=== PATIENT | female | born 1985 | race Caucasian/White ===

== ENCOUNTER 2017-01-05 23:15 | Emergency (ER) | payer MEDICARE, MEDICAID | END 2017-01-05 23:55 | disposition home or self-care (01) | LOC: ER 23:15 | DX: M72.2 Plantar fascial fibromatosis (principal) ==

== ENCOUNTER → 2017-02-23 | Outpatient (CLI) | payer MEDICARE, MEDICAID | END | disposition home or self-care (01) | LOC: LAB.O 12:59 | PROVIDERS: ATTEND Student in an Organized Health Care Education/Training Program | DX: K14.6 Glossodynia (principal) ==

== ENCOUNTER → 2017-03-06 | Outpatient (CLI) | payer MEDICARE, MEDICAID ==
--- NOTE | 2017-03-06 14:57 | MRI ---
EXAM DESCRIPTION: Cervical Spine w/wo Contrast CLINICAL HISTORY: PAIN COMPARISON: None Available. TECHNIQUE: MRI of the cervical spine is performed according to our usual protocol. FINDINGS: Straightening of the cervical spine with a tiny amount reversal of the lordosis centered at approximately the C5 level is present with multilevel modest disc desiccation with very little loss of disc height is evident. No intradural or intramedullary masses are noted in the cervical cord on pre and postcontrast imaging demonstrates no evidence of abnormal enhancement or intradural or intra-axial mass. The adjacent neck soft tissues and retropharyngeal spaces are unremarkable with no abnormal fluid collections in the epidural space or marrow destructive changes. C2-3: The disc is mildly desiccated. There is no loss of height. There is no bulging. The facets are unremarkable with no significant hypertrophy. There is no stenosis or impingement. C3-4: The disc is mildly desiccated. There is no loss of height. There is no bulging. The facets are unremarkable with no significant hypertrophy. There is no stenosis or impingement. C4-5: The disc is mildly desiccated There is no loss of height. There is no bulging. The facets are unremarkable with no significant hypertrophy. There is no stenosis or impingement. C5-6: The disc is mildly desiccated with symmetric annular bulge of the disc osteophyte complex with adequate central canal. Mildly asymmetric narrowing of the right neural foramen from uncinate process hypertrophy and/or facet arthropathy. C6-7: The disc is mildly desiccated. There is no loss of height. There is no bulging. The facets are unremarkable with no significant hypertrophy. There is no stenosis or impingement. C7-T1: the disc is well hydrated. There is no loss of height. There is no bulging. The facets are unremarkable with no significant hypertrophy. There is no stenosis or impingement. Postcontrast imaging shows no abnormal areas of enhancement or tumor mass or destructive process within the bony cervical spine. IMPRESSION: 1. Multilevel disc desiccation with slight straightening of the cervical spine through C6-7 with mild symmetric annular bulge and mild right foraminal narrowing noted only at the C5-6 level. 2. No cervical spine stenosis or disc lateralizing herniation is seen and no destructive process is noted. Electronically signed by: Santosh Chavez MD 03/06/2017 2:56 PM CDT
--- NOTE | 2017-03-06 15:32 | MRI ---
Study: MRI of the Lumbar Spine. Indication: Two-month history lower back pain, bilateral leg pain and numbness Technique: Multiplanar, multi sequence MRI of the lumbar spine was obtained with and without intravenous contrast. Comparison: None. Findings: The designated L5-S1 disc space level is visualized on axial T2 image three. Vertebral body height maintained. No marrow infiltrating lesion. Conus medullaris unremarkable. L1-L2: Unremarkable. L2-L3: Unremarkable L3-L4: Unremarkable L4-L5: Mild to moderate bilateral facet arthrosis, otherwise unremarkable. L5-S1: Mild disc space height loss and disc desiccation noted with a 2.5 mm disc bulge and superimposed broad-based left lateral recess/foraminal disc protrusion measuring 4 mm AP by 24 mm transverse. Annular fissuring noted at its base. Moderate bilateral facet arthrosis. No spinal canal narrowing. Mild to moderate left and mild right neural foraminal narrowing. No pathologic enhancement. Impression: L5-S1 disc disease as above with mild to moderate left and mild right neural foraminal narrowing. No spinal canal narrowing. Electronically signed by: Bam Shell MD 03/06/2017 3:31 PM CDT
== END | disposition home or self-care (01) ==
LOC: MRI 10:09
PROVIDERS: ATTEND Psychiatry & Neurology Pain Medicine
DX: M51.37 Other intervertebral disc degeneration, lumbosacral region (principal); M50.323 Other cervical disc degeneration at C6-C7 level

== ENCOUNTER → 2017-03-13 | Outpatient (CLI) | payer MEDICARE, MEDICAID | END | disposition home or self-care (01) | LOC: LAB.O 11:05 | PROVIDERS: ATTEND General Practice | DX: I10 Essential (primary) hypertension (principal); Z13.1 Encounter for screening for diabetes mellitus ==

== ENCOUNTER 2017-05-01 15:36 | Emergency (ER) | payer MEDICARE, MEDICAID ==
[2017-05-01] MEDS ORDERED: LIDOCAINE VIS-MYLANTA 30 ML UD PO ONE (15:48)
[2017-05-01 15:55] VITALS: TEMP 98
--- NOTE | 2017-05-01 16:32 | RAD ---
EXAM DESCRIPTION: Abdomen Flat Upright CLINICAL HISTORY: 32 years Female, pain COMPARISON: None available IMPRESSION: Bowel gas pattern is nonspecific. Moderate amount of fecal material demonstrated within the ascending colon, transverse colon, descending colon and rectum. Air is seen within the colon and rectum. No evidence for pneumatosis intestinalis, portal venous gas, or free air under diaphragm. No organomegaly. No pathologic calcifications. No acute osseous abnormality. Impression: 1. No radiographic evidence for acute intra-abdominal process. 2. Moderate amount of fecal material in the colon and rectum. Electronically signed by: Jose Zamora MD 05/01/2017 4:32 PM CDT
--- NOTE | 2017-05-01 16:34 | RAD ---
EXAM DESCRIPTION: Chest,2 Views CLINICAL HISTORY: left lower chest pain COMPARISON: Chest radiograph dated September 18, 2013. TECHNIQUE: PA/lateral FINDINGS: Cardiomediastinal silhouette and pulmonary vascularity are within normal limits. Lungs are clear without focal consolidations. Bilateral costophrenic angles are sharp. No pneumothorax. Visualized osseous structures show no destructive lesions. IMPRESSION: No radiographic evidence for acute cardiopulmonary process. Electronically signed by: Jose Zamora MD 05/01/2017 4:33 PM CDT
--- NOTE | 2017-05-01 16:35 | ED.PDOC ---
History of Present Illness - General Chief Complaint: Problem Stated Complaint: left flank pain radiating to left abdomen Time Seen by Provider: 05/01/17 15:37 Source: patient Exam Limitations: no limitations - History of Present Illness Initial Comments: the patient is a 32-year-old female presenting to the emergency room secondary to left upper abdominal and lower lateral chest discomfort present for less than 24 hours. No definite fever. No nausea. She started having a mild amount of diarrhea 2 days ago. Her last episode of diarrhea was this morning. No blood. No vomiting. No syncope or near-syncope. No chest pain otherwise. No palpitations. She did recently go off of Cymbalta. Timing/Duration: 24 hours Severity: moderate Improving Factors: nothing Worsening Factors: movement Associated Symptoms: denies symptoms Allergies/Adverse Reactions: Allergies NO KNOWN ALLERGY Allergy (Verified 05/01/17 15:46) Home Medications: Ambulatory Orders Desvenlafaxine Succinate [Pristiq] 50 mg PO BEDTIME 10/03/16 Gabapentin 600 mg PO BEDTIME 10/03/16 Omeprazole 40 mg PO BEDTIME 10/03/16 Atenolol 100 mg PO 05/01/17 Famotidine 20 mg PO BID #15 tab 05/01/17 Ondansetron [Zofran Odt] 4 mg PO Q4H PRN #10 tab 05/01/17 Pravastatin Sodium 40 mg PO 05/01/17 Review of Systems - Review of Systems Constitutional: States: malaise EENTM: States: no symptoms reported Respiratory: States: no symptoms reported Cardiology: States: no symptoms reported, see HPI Gastrointestinal/Abdominal: States: see HPI Genitourinary: States: no symptoms reported Musculoskeletal: States: no symptoms reported Skin: States: no symptoms reported Neurological: States: no symptoms reported Endocrine: States: no symptoms reported All other Systems: No Change from Baseline Past Medical History (General) - Patient Medical History Hx Seizures: No Hx Stroke: No Hx Dementia: No Hx Asthma: No Hx of COPD: No Hx Cardiac Disorders: No Hx Congestive Heart Failure: No Hx Pacemaker: No Hx Hypertension: No Hx Thyroid Disease: No Hx Diabetes: No Hx Gastroesophageal Reflux: Yes Hx Renal Disease: No Hx Cancer: No Hx of HIV: No Hx Hepatitis C: No Hx MRSA: No Surgical History: Hysterectomy - Vaccination History Hx Tetanus, Diphtheria Vaccination: No Hx Influenza Vaccination: No Hx Pneumococcal Vaccination: No Immunizations Up to Date: No - Social History Hx Tobacco Use: No Hx Chewing Tobacco Use: No Hx Alcohol Use: No Hx Substance Use: No Hx Substance Use Treatment: No Hx Depression: No Feels Threatened In Home Enviroment: No Feels Threatened In a Relationship: No Hx Physical Abuse: No Hx Emotional Abuse: No Hx Suspected Abuse: No - Female History Patient is a Female of Child Bearing Age (10 -59 yrs old): No Patient : No Family Medical History - Family History Mother Family History: Unknown Physical Exam - Physical Exam General Appearance: Alert, Comfortable, No apparent distress Eye Exam: bilateral normal Ears, Nose, Throat: hearing grossly normal, normal ENT inspection, normal pharynx Neck: non-tender, full range of motion, supple Respiratory: lungs clear, normal breath sounds, no respiratory distress, no accessory muscle use, other - she does have some discomfort palpation over her lowest lateral ribs on the left. No bruising. No eczema. No crepitus. No deformity. Cardiovascular/Chest: normal peripheral pulses, regular rate, rhythm, no edema Peripheral Pulses: radial,right: 2+, radial,left: 2+, dorsalis pedis,right: 2+, dorsalis pedis,left: 2+, posterior tibialis,right: 2+, posterior tibialis,left: 2+ Gastrointestinal/Abdominal: soft, other - [id number] epigastric and left upper quadrant discomfort palpation. No definite palpable splenomegaly. No rebound or peritoneal signs. Rectal Exam: deferred Back Exam: normal inspection, no CVA tenderness, no vertebral tenderness Extremity: normal range of motion, non-tender, normal inspection, no pedal edema , normal capillary refill Neurologic: instructional services specialist II-XII nml as tested, alert, normal mood/affect, oriented x 3 Skin Exam: normal color - I do not see any rash over the area of pain. No history of shingles. Comments: Vital Signs - 24 hr 05/01/17 15:51 Temperature 98 F Pulse Rate [ 87 Left Apical] Respiratory 20 Rate Blood Pressure 143/73 [Left Arm] O2 Sat by Pulse 98 Oximetry Progress - Progress Progress: 05/01/17 16:37 the patient is a 32-year-old female presenting with left upper quadrant and left lower lateral chest discomfort. The patient has symptoms of gastroenteritis/colitis. She'll be placed on Pepcid for the next week in addition to her home medications. She does need to hold her pravastatin until she is feeling better. She needs to increase her fluid intake. Avoid large meals or hot or spicy foods. She can use Maalox as needed. ER warnings were given for any acute worsening. She will also be written for Zofran for as needed use for any nausea. She can follow up with her primary care doctor later this week. it is possible some of the symptoms may be related to Cymbalta withdrawal. She has been off of the medication long enough at this point that I 'm not recommending that she resume it at a lower dose. - Results/Orders Results/Orders: Laboratory Tests 05/01/17 05/01/17 15:48 15:58 Urine Color Yellow Urine Appearance Clear Urine pH 6.0 Ur Specific [place] <= 1.005 Urine Protein Negative Urine Glucose (UA) Negative Urine Ketones Negative Urine Blood Negative Urine Nitrite Negative Urine Bilirubin Negative Urine Urobilinogen 0.2 Ur Leukocyte Esterase Negative Urine RBC 0 Urine WBC 0-1 Ur Epithelial Cells 1-3 Urine Bacteria Rare Urine HCG, Qual Negative I see no evidence of infiltrate or pneumothorax or congestive heart failure on the chest x-ray. Abdominal x-ray shows a mild amount of stool. I see no evidence of free air. No evidence of obstruction. Departure - Departure Clinical Impression: Gastroenteritis and colitis, viral Disposition: Discharge to Home or Self Care Condition: Fair Departure Forms: ED Discharge - Pt. Copy, Patient Portal Self Enrollment Instructions: DI for Viral Gastroenteritis -- Adult Diet: bland diet Activity: increase activity as tolerated Referrals: Jakob Landin MD [Primary Care Provider] - 1-5 Days Prescriptions: Famotidine 20 mg PO BID #15 tab Ondansetron [Zofran Odt] 4 mg PO Q4H PRN #10 tab PRN Reason: Vomiting Home Medications: Ambulatory Orders Desvenlafaxine Succinate [Pristiq] 50 mg PO BEDTIME 10/03/16 Gabapentin 600 mg PO BEDTIME 10/03/16 Omeprazole 40 mg PO BEDTIME 10/03/16 Atenolol 100 mg PO 05/01/17 Famotidine 20 mg PO BID #15 tab 05/01/17 Ondansetron [Zofran Odt] 4 mg PO Q4H PRN #10 tab 05/01/17 Pravastatin Sodium 40 mg PO 05/01/17 Additional Instructions: the patient is a 32-year-old female presenting with left upper quadrant and left lower lateral chest discomfort. The patient has symptoms of gastroenteritis/colitis. She'll be placed on Pepcid for the next week in addition to her home medications. She does need to hold her pravastatin until she is feeling better. She needs to increase her fluid intake. Avoid large meals or hot or spicy foods. She can use Maalox as needed. ER warnings were given for any acute worsening. She will also be written for Zofran for as needed use for any nausea. She can follow up with her primary care doctor later this week. it is possible some of the symptoms may be related to Cymbalta withdrawal. She has been off of the medication long enough at this point that I 'm not recommending that she resume it at a lower dose.
[2017-05-01 16:56] VITALS: BP 130/71; O2SAT 99
== END 2017-05-01 16:56 | disposition home or self-care (01) ==
LOC: ER 15:36
DX: A08.4 Viral intestinal infection, unspecified (principal); K21.9 Gastro-esophageal reflux disease without esophagitis; Z79.899 Other long term (current) drug therapy

== ENCOUNTER 2017-09-14 00:14 | Emergency (ER) | payer MEDICARE, MEDICAID ==
--- NOTE | 2017-09-14 00:45 | ED.PDOC ---
History of Present Illness - General Chief Complaint: Abdominal Pain Stated Complaint: abdominal pain Time Seen by Provider: 09/14/17 00:43 Information Source: patient Exam Limitations: no limitations - History of Present Illness Initial Comments: Josefina Chang 32 y/o female stated that she had constant dull left sided abdominal pain for the last 1 1/2 weeks which had got worse the today with loose stool and felt nauseated.Able to eat regular food but no vomiting.Denies dysuria or hematuria. Also mentioned that pain aggravated by laying on left side. Abdominal Pain Onset Location: [facility] Pain Radiation: no radiation Quality: dull, steady Timing/Duration: other - 1 1/2 weeks Improving Factors: nothing Worsening Factors: other - see hpi Associated Symptoms: other - see hpi Review of Systems - Review of Systems Constitutional: States: no symptoms reported Respiratory: States: no symptoms reported Cardiology: States: no symptoms reported Gastrointestinal/Abdominal: States: see HPI Genitourinary: States: no symptoms reported Musculoskeletal: States: no symptoms reported Past Medical History (General) - Patient Medical History Hx Seizures: No Hx Stroke: No Hx Dementia: No Hx Asthma: No Hx of COPD: No Hx Cardiac Disorders: No Hx Congestive Heart Failure: No Hx Pacemaker: No Hx Hypertension: Yes Hx Thyroid Disease: No Hx Diabetes: No Hx Gastroesophageal Reflux: Yes Hx Renal Disease: No Hx Cancer: No Hx of HIV: No Hx Hepatitis C: No Hx MRSA: No Surgical History: appendectomy, Hysterectomy, other - hysterectomy, hemorrhoidectomy,CTS-right hand - Vaccination History Hx Tetanus, Diphtheria Vaccination: Yes Hx Influenza Vaccination: No Hx Pneumococcal Vaccination: No - Social History Hx Tobacco Use: Yes Cigarettes Packs Per Day: 1 Hx Chewing Tobacco Use: No Hx Alcohol Use: No Hx Substance Use: No Hx Substance Use Treatment: No Hx Depression: No Hx Physical Abuse: No Hx Emotional Abuse: No Hx Suspected Abuse: No - Activities of Daily Living Hospice Agency (if applicable):: None - Female History Patient is a Female of Child Bearing Age (10 -59 yrs old): No - Pt has had JEAN with BSO Patient : No - Triage Comment ED Triage Comment: Pt presents to ER--POV--Amb.--C/O Left Lower Abd pain x 2 weeks. Pt takes Hydrocodonr 10mg Po Q 6 Hrs at home for back pain. Takes 3 stool softners Q HS states. Pain is 9 and constant states. Shelly Ware RN. Family Medical History - Family History Mother Family History: Unknown Hx Family Hypertension: Yes Hx Family Cancer: Yes - breast-mother and sister Physical Exam - Physical Exam General Appearance: Alert, Comfortable, No apparent distress Eyes, Ears, Nose, Throat Exam: PERRL/EOMI, normal ENT inspection, pharynx normal Neck: non-tender, supple, normal inspection Respiratory: chest non-tender, lungs clear, normal breath sounds Cardiovascular/Chest: normal peripheral pulses, no murmur Peripheral Pulses: No deficit Gastrointestinal/Abdominal: normal bowel sounds, soft, no organomegaly, tenderness - left side abdomen ;no peritoneal signs Back Exam: no CVA tenderness, no vertebral tenderness Extremity: no pedal edema, no calf tenderness Neurologic: alert, normal mood/affect, oriented x 3 Progress - Progress Progress: 09/14/17 02:03 Vital Signs - 8 hr 09/14/17 09/14/17 09/14/17 00:20 01:15 01:34 Temperature 98.2 F 97.8 F 97.8 F Pulse Rate [Lt 62 65 65 radial] Respiratory 20 20 20 Rate Blood Pressure 142/85 119/78 119/78 [Left Arm] O2 Sat by Pulse 99 99 99 Oximetry - Results/Orders Results/Orders: Laboratory Tests 09/14/17 09/14/17 09/14/17 01:30 01:30 01:30 WBC 10.8 RBC 4.93 Hgb 13.9 Hct 40.4 MCV 82.0 MCH 28.3 MCHC 34.5 RDW 14.2 Plt Count 219 MPV 10.1 Absolute Neuts (auto) 5.30 Absolute Lymphs (auto) 4.30 H Absolute Monos (auto) 0.80 Absolute Eos (auto) 0.20 Absolute Basos (auto) 0.20 H Neutrophils % 49.6 Lymphocytes % 40.4 Monocytes % 7.1 Eosinophils % 1.5 Basophils % 1.4 Sodium 137 Potassium 3.8 Chloride 105 Carbon Dioxide 26 Anion Gap 9.8 L BUN 12 Creatinine 0.77 BUN/Creatinine Ratio 15.6 Random Glucose 103 Serum Osmolality 273.8 L Calcium 8.9 Total Bilirubin 0.4 AST 19 ALT 22 Alkaline Phosphatase 77 Serum Total Protein 7.0 Albumin 3.8 Globulin 3.2 Albumin/Globulin Ratio 1.2 Lipase 24 Urine Color Yellow Urine Appearance Clear Urine pH 6.0 Ur Specific [place] 1.025 Urine Protein Negative Urine Glucose (UA) Negative Urine Ketones Negative Urine Blood Negative Urine Nitrite Negative Urine Bilirubin Large Urine Urobilinogen 0.2 Ur Leukocyte Esterase Negative Urine RBC 0 Urine WBC 1-3 Ur Epithelial Cells 0-1 Urine Bacteria Rare Urine Mucus Moderate - EKG/XRAY/CT CT Ordered: Yes - abd/p-no acute abnormalities Departure - Departure Clinical Impression: Abdominal pain Qualifiers: Abdominal location: left upper quadrant Qualified Code(s): R10.12 - Left upper quadrant pain Time of Disposition: 03:02 Disposition: Discharge to Home or Self Care Departure Forms: ED Discharge - Pt. Copy, Patient Portal Self Enrollment Instructions: DI for Abdominal Pain-Adult Referrals: Jakob Landin MD [Primary Care Provider] - 1-2 Weeks Home Medications: Ambulatory Orders Desvenlafaxine Succinate [Pristiq] 50 mg PO BEDTIME 10/03/16 Gabapentin 600 mg PO BEDTIME 10/03/16 Omeprazole 40 mg PO BEDTIME 10/03/16 Atenolol 100 mg PO 05/01/17 Famotidine 20 mg PO BID #15 tab 05/01/17 Ondansetron [Zofran Odt] 4 mg PO Q4H PRN #10 tab 05/01/17 Pravastatin Sodium 40 mg PO 05/01/17 Additional Instructions: Followup with primary md Dr. Landin 09/18/2017 call for appointment May use Aleve (over the counter) 1-2 tablets am/pm as needed for pain
[2017-09-14] MEDS ORDERED: LACTATED RINGERS 1,000 ML ONE (01:23)
[2017-09-14] MEDS ORDERED: LACTATED RINGERS 1,000 ML IVS ONE (01:23)
[2017-09-14 01:35] VITALS: TEMP 97.8
[2017-09-14 02:32] VITALS: BP 113/71
--- NOTE | 2017-09-14 02:33 | CT ---
EXAM DESCRIPTION: Abdomen/Pelvis w/Contrast CLINICAL HISTORY: 32 years Female, pain COMPARISON: 12/11/2013 TECHNIQUE: Contiguous axial CT images of the abdomen and pelvis were acquired after the administration of intravenous contrast. Coronal and sagittal reformatted images are provided. This exam was performed according to our departmental dose-optimization program which includes use of Automated Exposure Control, adjustment of the mA and/or kV according to patient size and/or use of iterative reconstruction technique. FINDINGS: Chest base: Unremarkable. Liver: Unremarkable. Gallbladder: Unremarkable. Spleen: Unremarkable. Adrenals: Unremarkable. Pancreas: Unremarkable. Right Kidney: No renal stones or hydronephrosis. Left Kidney: No renal stones or hydronephrosis. Aorta and branch vessels: Mild calcific atherosclerosis of the aortoiliac vessels. Lymph nodes: No lymphadenopathy. Bowels: No obstruction. Colon: No wall thickening. Appendix: Surgically absent Peritoneum: No free air or free fluid. Pelvic organs: The uterus is absent. No large adnexal mass. Bladder: Unremarkable. Bones and soft tissues: No acute osseous or soft tissue abnormalities. IMPRESSION: No acute intra-abdominal abnormality. No renal stones or hydronephrosis. Electronically signed by: Brayan Rawls MD 09/14/2017 2:32 AM CDT
[2017-09-14] MEDS ORDERED: ORPHENADRINE CITRATE 30 MG/ML AMP IV ONE (02:58)
[2017-09-14] MEDS ORDERED: KETOROLAC TROMETHAMINE INJ 30 MG/ML VIAL IV ONE (02:58)
[2017-09-14] MEDS ORDERED: ORPHENADRINE CITRATE 30 MG/ML AMP IM ONE (03:13)
[2017-09-14] MEDS ORDERED: KETOROLAC TROMETHAMINE INJ 30 MG/ML VIAL IM ONE (03:13)
[2017-09-14 03:22] VITALS: O2SAT 97
== END 2017-09-14 03:30 | disposition home or self-care (01) ==
LOC: ER 00:14
DX: R10.12 Left upper quadrant pain (principal); I10 Essential (primary) hypertension; K21.9 Gastro-esophageal reflux disease without esophagitis; F17.210 Nicotine dependence, cigarettes, uncomplicated
CPT/HCPCS: 36415; 74177; 80053; 81001; 83690; 85025; J1885; J2360; J7120

== ENCOUNTER 2017-10-21 21:16 | Emergency (ER) | payer MEDICARE, MEDICAID ==
[2017-10-21] MEDS ORDERED: fentaNYL CITRATE INJ 50 MCG/ML AMP IM ONE (21:31)
[2017-10-21] MEDS ORDERED: PROMETHAZINE HCL INJ 25 MG/ML VIAL IM ONE (21:31)
[2017-10-21 21:32] VITALS: TEMP 98.4
--- NOTE | 2017-10-21 21:37 | ED.PDOC ---
History of Present Illness - General Chief Complaint: Headache Stated Complaint: headache Time Seen by Provider: 10/21/17 21:27 Source: patient Exam Limitations: no limitations Additional Information: C/O R SIDED CLIFFORD, INTERMITTENT AT FIRST BUT CONSTANT PAST 3 DAYS. - History of Present Illness Timing/Duration: other - 12 DAYS Severity: moderate Improving Factors: nothing, other - MULTIPLE OTC MEDICATIONS Worsening Factors: nothing Allergies/Adverse Reactions: Allergies NO KNOWN ALLERGY Allergy (Verified 05/01/17 15:46) Home Medications: Ambulatory Orders Desvenlafaxine Succinate [Pristiq] 50 mg PO BEDTIME 10/03/16 Gabapentin 600 mg PO BEDTIME 10/03/16 Omeprazole 40 mg PO BEDTIME 10/03/16 Atenolol 100 mg PO 05/01/17 Famotidine 20 mg PO BID #15 tab 05/01/17 Ondansetron [Zofran Odt] 4 mg PO Q4H PRN #10 tab 05/01/17 Pravastatin Sodium 40 mg PO 05/01/17 Cyclobenzaprine HCl [Flexeril] 10 mg PO TID PRN #15 tab 10/21/17 Indomethacin 50 mg PO TID PRN #14 cap 10/21/17 Review of Systems - Review of Systems Constitutional: Denies: chills, fever EENTM: Denies: eye pain, ear pain, nose congestion, throat pain Respiratory: Denies: cough, short of breath Cardiology: States: no symptoms reported Gastrointestinal/Abdominal: Denies: abdominal pain, nausea, vomiting Genitourinary: States: no symptoms reported Musculoskeletal: States: no symptoms reported Skin: States: no symptoms reported Neurological: Denies: numbness, paresthesia, weakness Endocrine: States: no symptoms reported Hematologic/Lymphatic: States: no symptoms reported Past Medical History (General) - Patient Medical History Hx Seizures: No Hx Stroke: No Hx Dementia: No Hx Asthma: No Hx of COPD: No Hx Cardiac Disorders: No Hx Congestive Heart Failure: No Hx Pacemaker: No Hx Hypertension: Yes Hx Thyroid Disease: No Hx Diabetes: No Hx Gastroesophageal Reflux: Yes Hx Renal Disease: No Hx Cancer: No Hx of HIV: No Hx Hepatitis C: No Hx MRSA: No Surgical History: appendectomy, Hysterectomy - Vaccination History Hx Tetanus, Diphtheria Vaccination: No Hx Influenza Vaccination: No Hx Pneumococcal Vaccination: No Immunizations Up to Date: Yes - Social History Hx Tobacco Use: Yes Hx Chewing Tobacco Use: No Hx Alcohol Use: No Hx Substance Use: No Hx Substance Use Treatment: No Hx Depression: Yes Hx Physical Abuse: No Hx Emotional Abuse: No Hx Suspected Abuse: No - Female History Patient is a Female of Child Bearing Age (10 -59 yrs old): Yes Patient : No Family Medical History - Family History Mother Family History: Unknown Hx Family Hypertension: Yes Hx Family Cancer: Yes - breast-mother and sister Physical Exam - Physical Exam General Appearance: Alert, No apparent distress, Obese Eye Exam: bilateral normal Ears, Nose, Throat: hearing grossly normal, normal ENT inspection, normal pharynx Neck: non-tender, full range of motion, supple Respiratory: lungs clear, normal breath sounds Cardiovascular/Chest: regular rate, rhythm, no murmur Gastrointestinal/Abdominal: non tender, soft, no organomegaly Back Exam: normal inspection, no CVA tenderness Extremity: normal range of motion, non-tender, normal inspection Neurologic: no motor/sensory deficits, alert, normal mood/affect, oriented x 3 Skin Exam: normal color, warm/dry Lymphatic: no adenopathy Progress - Progress Progress: 10/21/17 22:00 FEELS SOME BETTER. 10/21/17 22:25 FEELS MUCH BETTER Departure - Departure Clinical Impression: Tension headache Hypertension Qualifiers: Hypertension type: essential hypertension Qualified Code(s): I10 - Essential ( primary) hypertension Time of Disposition: 22:26 Disposition: Discharge to Home or Self Care Condition: Good Departure Forms: ED Discharge - Pt. Copy, Patient Portal Self Enrollment Instructions: DI for Headache Referrals: Jakob Landin MD [Primary Care Provider] - 1-2 Weeks Prescriptions: Cyclobenzaprine HCl [Flexeril] 10 mg PO TID PRN #15 tab PRN Reason: Pain Indomethacin 50 mg PO TID PRN #14 cap PRN Reason: Pain Home Medications: Ambulatory Orders Desvenlafaxine Succinate [Pristiq] 50 mg PO BEDTIME 10/03/16 Gabapentin 600 mg PO BEDTIME 10/03/16 Omeprazole 40 mg PO BEDTIME 10/03/16 Atenolol 100 mg PO 05/01/17 Famotidine 20 mg PO BID #15 tab 05/01/17 Ondansetron [Zofran Odt] 4 mg PO Q4H PRN #10 tab 05/01/17 Pravastatin Sodium 40 mg PO 05/01/17 Cyclobenzaprine HCl [Flexeril] 10 mg PO TID PRN #15 tab 10/21/17 Indomethacin 50 mg PO TID PRN #14 cap 10/21/17
[2017-10-21 22:35] VITALS: BP 136/80; O2SAT 96
== END 2017-10-21 22:34 | disposition home or self-care (01) ==
LOC: ER 21:16
DX: G44.209 Tension-type headache, unspecified, not intractable (principal); I10 Essential (primary) hypertension; Z87.891 Personal history of nicotine dependence; K21.9 Gastro-esophageal reflux disease without esophagitis
CPT/HCPCS: J2550; J3010

== ENCOUNTER → 2017-10-26 | Outpatient (CLI) | payer MEDICARE, MEDICAID ==
--- NOTE | 2017-10-27 04:40 | RAD ---
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 No significant arthritic changes. Alignment is anatomic. Electronically signed by: Brayan Rawls MD 10/27/2017 4:39 AM CLINICAL QUALITY ASSURANCE SPECIALIST
== END | disposition home or self-care (01) ==
LOC: RAD 10:12
PROVIDERS: ATTEND Orthopaedic Surgery
DX: M79.642 Pain in left hand (principal)

== ENCOUNTER → 2017-11-02 | Outpatient (CLI) | payer MEDICARE, MEDICAID | END | disposition home or self-care (01) | LOC: RESP 09:59 | PROVIDERS: ATTEND Orthopaedic Surgery | DX: Z01.812 Encounter for preprocedural laboratory examination (principal) ==

== ENCOUNTER 2017-11-22 06:09 | Day surgery (SDC) | payer MEDICARE, MEDICAID ==
[2017-11-22] MEDS ORDERED: ceFAZolin SODIUM 1 GM VIAL ONE (06:18)
[2017-11-22] MEDS ORDERED: LACTATED RINGERS 1,000 ML ONE (06:18)
[2017-11-22] MEDS ORDERED: SODIUM CHL 0.9% 100ML MINI-BAG 100 ML IVPB ONE (06:18)
[2017-11-22] MEDS ORDERED: PROPOFOL 200 MG/20 ML VIAL IV ONE (07:00)
[2017-11-22] MEDS ORDERED: BENZOCAINE-MENTH LOZ (CEPACOL) 1 EA LOZ MT PRN (07:03)
[2017-11-22] MEDS ORDERED: CYCLOBENZAPRINE HCL 10 MG TAB PO PRN (07:03)
[2017-11-22] MEDS ORDERED: PROMETHAZINE HCL INJ 12.5 MG in SODIUM CHLORIDE 0.9% 50ML 50 ML IVPB PRN (07:03)
[2017-11-22] MEDS ORDERED: HYDROcodone 5MG/APAP 325MG 1 EA TAB PO PRN (07:03)
[2017-11-22] MEDS ORDERED: ONDANSETRON INJ 4 MG/2 ML VIAL IV PRN (07:03)
[2017-11-22] MEDS ORDERED: traMADol HCL 50 MG TAB PO PRN (07:03)
[2017-11-22] MEDS ORDERED: MORPHINE SULFATE INJ 10 MG/ML VIAL IM PRN (07:03)
[2017-11-22] MEDS ORDERED: ZOLPIDEM TARTRATE 5 MG TAB PO PRN (07:03)
[2017-11-22] MEDS ORDERED: BISACODYL SUPPOSITORY 10 MG PR PRN (07:03)
[2017-11-22] MEDS ORDERED: SODIUM CHLORIDE 0.9% (FLUSH) 10 ML SYG IV PRN (07:03)
[2017-11-22] MEDS ORDERED: MAGNESIUM HYDROXIDE 30 ML UD PO PRN (07:03)
[2017-11-22] MEDS ORDERED: PROMETHAZINE HCL INJ 25 MG in SODIUM CHLORIDE 0.9% 50ML 50 ML IVPB PRN (07:03)
[2017-11-22] MEDS ORDERED: ACETAMINOPHEN 325 MG TAB PO PRN (07:03)
[2017-11-22] MEDS ORDERED: MORPHINE SULFATE INJ 10 MG/ML VIAL IV PRN (07:03)
[2017-11-22] MEDS ORDERED: ALUMINUM & MAGNESIUM HYDROXIDE 30 ML UD PO PRN (07:03)
[2017-11-22] MEDS ORDERED: ACETAMINOPHEN 500 MG TAB PO PRN (07:03)
[2017-11-22] MEDS ORDERED: TRANEXAMIC ACID INJ 1,000 MG in SODIUM CHLORIDE 0.9% 100ML 100 ML IVPB ONE (07:03)
[2017-11-22] MEDS ORDERED: TEMAZEPAM 15 MG CAP PO PRN (07:03)
[2017-11-22] MEDS ORDERED: DEX 5% W/NACL 0.45% 1000ML 1,000 ML IVS PRN (07:03)
[2017-11-22] MEDS ORDERED: NALOXONE HCL INJ 0.4 MG/ML VIAL IV PRN (07:03)
[2017-11-22] MEDS ORDERED: MORPHINE PCA 1 MG/ML 100ML 1 BAG in PREMIX BAG 1 BAG IVPB SCH (07:30)
[2017-11-22] MEDS ORDERED: CELECOXIB 100 MG CAP PO SCH (07:30)
[2017-11-22] MEDS ORDERED: IV SET AND CAP CHANGE INJ INJ SCH (07:30)
[2017-11-22] MEDS ORDERED: MAGNESIUM OXIDE 400 MG TAB PO SCH (09:00)
[2017-11-22] MEDS ORDERED: LIDOCAINE 1% 50 ML VIAL INJ ONE (09:53)
[2017-11-22] MEDS ORDERED: BUPIVACAINE 0.25% INJ 30 ML VIAL INJ ONE (09:53)
[2017-11-22] MEDS: VANCOMYCIN HCL INJ 1,000 MG VIAL IVPB ONE ×2 (10:28→10:33)
[2017-11-22] MEDS: ceFAZolin SODIUM 1 GM VIAL ONE ×2 (10:28→10:33)
--- NOTE | 2017-11-22 13:41 | OP ---
DATE OF PROCEDURE: 11/22/17 PREOPERATIVE DIAGNOSIS: 1. Carpal tunnel syndrome. POSTOPERATIVE DIAGNOSIS: 1. Carpal tunnel syndrome. PROCEDURE: 1. Carpal tunnel release. SURGEON: Avinash Pool MD. NURSES SUPERINTENDENT: Duran Youssef CST, SA-C. ANESTHESIA: Local with sedation. COMPLICATIONS: None. FINDINGS: Thickened transverse carpal ligament. INDICATION: Josefina has a history of bilateral carpal tunnel syndrome which has been confirmed both clinically and by EMG. Because of the carpal tunnel syndrome and failure to gain relief with conservative measures, she has requested operative intervention. After discussing the risks, benefits and alternatives to that, the patient has given informed consent for carpal tunnel release. PROCEDURE: The patient was brought to the Operating Room and placed in the supine position. Sedation was administered and local anesthetic was injected into the operative area under sterile conditions. After the injection of anesthetic, the arm was sterilely prepped and draped. A longitudinal incision was made directly overlying the transverse carpal ligament and blunt dissection was carried down to the ligament. The transverse carpal ligament was sharply transected along its length and a [place] elevator was used to ensure complete release of the ligament. Once release had been confirmed, the wound was thoroughly irrigated and the wound was closed with Nylon suture. A sterile dressing was placed and the patient was taken to the Day Surgery Unit. POSTOPERATIVE INSTRUCTIONS: She will be utilizing the digits for range of motion of the digits and will followup with us in two days. #[id number] [facility]
[2017-11-22 14:12] VITALS: BP 135/83; TEMP 97.8; O2SAT 99
[2017-11-22] MEDS ORDERED: CEFAZOLIN SODIUM 2 GRAMS IV 2 GM in PREMIX BAG 1 BAG IVPB SCH (16:00)
[2017-11-22] MEDS ORDERED: VANCOMYCIN HCL INJ 1,000 MG in SODIUM CHLORIDE 0.9% 250ML 250 ML IVPB SCH (18:00)
[2017-11-22] MEDS ORDERED: DOCUSATE CALCIUM 240 MG CAP PO SCH (21:00)
[2017-11-22] MEDS ORDERED: ENOXAPARIN SODIUM 30 MG/0.3 ML SYG SUBCU SCH (23:00)
[2017-11-24] MEDS ORDERED: SODIUM CHLORIDE 0.9% (FLUSH) 10 ML SYG IV SCH (09:00)
[2017-11-25] MEDS ORDERED: MAGNESIUM HYDROXIDE 30 ML UD PO ONE (21:00)
[2017-11-25] MEDS ORDERED: BISACODYL SUPPOSITORY 10 MG PR ONE (21:00)
== END 2017-11-22 11:25 | disposition home or self-care (01) ==
LOC: AMB 06:09
PROVIDERS: ATTEND Orthopaedic Surgery
DX: G56.02 Carpal tunnel syndrome, left upper limb (principal); I10 Essential (primary) hypertension; K21.9 Gastro-esophageal reflux disease without esophagitis; E66.9 Obesity, unspecified; F17.200 Nicotine dependence, unspecified, uncomplicated; G47.30 Sleep apnea, unspecified; Z88.1 Allergy status to other antibiotic agents; Z91.040 Latex allergy status; Z79.899 Other long term (current) drug therapy
CPT/HCPCS: 01810; 64721; J0690; J3370; J3490; J7050; J7120

== ENCOUNTER → 2018-04-26 | Outpatient (CLI) | payer MEDICARE, MEDICAID ==
--- NOTE | 2018-04-26 16:24 | MRI ---
EXAM DESCRIPTION: Lumbar Spine w/o Contrast CLINICAL HISTORY: 33 years Female, [employer] [employer]QU[employer] SYNDROME COMPARISON: MRI of the lumbar spine dated 03/06/2017. TECHNIQUE: Multiplanar multiecho imaging of the lumbar spine was performed without intravenous contrast administration. FINDINGS: The normal lordotic curvature of the lumbar spine is well preserved. The vertebral body heights are well-maintained with no acute compression deformity. Multilevel intervertebral disc space narrowing is noted. The conus medullaris terminates at T12-L1 intervertebral disc space. The visualized spinal cord demonstrates no signal abnormality. L1-L2: Normal L2-L3: Normal L3-L4: Normal L4-L5: Mild bilateral facet arthropathy with no significant canal stenosis or neural foraminal narrowing. L5-S1: Disc desiccation and loss of intervertebral disc height is identified. Again identified is a broad-based left lateral recess and foraminal disc protrusion resulting in [id number] left neural foraminal narrowing. Mild right neural foraminal narrowing is also identified. The visualized prevertebral and paravertebral soft tissues appear unremarkable. IMPRESSION: Stable left lateral recess and foraminal disc protrusion at L5-S1 level with resultant mild to moderate left neural foraminal narrowing and mild right neural foraminal narrowing. Electronically signed by: Georgia Buckley MD 04/26/2018 4:23 PM CDT
== END ==
LOC: MRI 11:30
PROVIDERS: ATTEND Nurse Practitioner Family
DX: G83.4 Cauda equina syndrome (principal); M51.27 Other intervertebral disc displacement, lumbosacral region

== ENCOUNTER 2018-05-13 01:25 | Emergency (ER) | payer MEDICARE, MEDICAID ==
[2018-05-13 01:43] VITALS: O2SAT 98
--- NOTE | 2018-05-13 02:12 | RAD ---
EXAM: Three view(s) of the left ankle. INDICATION: Pain. COMPARISON: None. FINDINGS: No acute fracture or dislocation. A chronic appearing avulsion injury to the distal fibula is noted with a well-circumscribed calcification. There is mild soft tissue swelling along the lateral aspect of the ankle. IMPRESSION: 1. No acute fracture. Electronically signed by: Jignesh Houser MD 05/13/2018 2:10 AM CDT Workstation: [id number]
[2018-05-13] MEDS ORDERED: ACETAMINOPHEN W/COD #3 TAB (ER Disp) PO ONE (02:36)
--- NOTE | 2018-05-13 02:39 | ED.PDOC ---
History of Present Illness - General Chief Complaint: Lower Extremity Injury Stated Complaint: left foot pain Time Seen by Provider: 05/13/18 01:41 Source: patient, Vital Signs reviewed Exam Limitations: no limitations - History of Present Illness Initial Comments: twisted her ankle on Monday Occurred: other Pain - Lower Extremity: moderate: Left Ankle Method of Injury: twisted Improving Factors: rest Worsening Factors: movement Allergies/Adverse Reactions: Allergies NO KNOWN ALLERGY Allergy (Verified 05/01/17 15:46) Home Medications: Ambulatory Orders Desvenlafaxine Succinate [Pristiq] 50 mg PO BEDTIME 10/03/16 Gabapentin 600 mg PO BEDTIME 10/03/16 Omeprazole 40 mg PO BEDTIME 10/03/16 Atenolol 100 mg PO 05/01/17 Famotidine 20 mg PO BID #15 tab 05/01/17 Ondansetron [Zofran Odt] 4 mg PO Q4H PRN #10 tab 05/01/17 Pravastatin Sodium 40 mg PO 05/01/17 Cyclobenzaprine HCl [Flexeril] 10 mg PO TID PRN #15 tab 10/21/17 Indomethacin 50 mg PO TID PRN #14 cap 10/21/17 Review of Systems - Review of Systems Constitutional: States: no symptoms reported Musculoskeletal: States: see HPI, joint pain, joint swelling Skin: States: no symptoms reported Neurological: States: no symptoms reported Past Medical History (General) - Patient Medical History Hx Seizures: Yes Hx Stroke: No Hx Dementia: No Hx Asthma: No Hx of COPD: No Hx Cardiac Disorders: No Hx Congestive Heart Failure: No Hx Pacemaker: No Hx Hypertension: Yes Hx Thyroid Disease: No Hx Diabetes: No Hx Gastroesophageal Reflux: Yes Hx Renal Disease: No Hx Cancer: No Hx of HIV: No Hx Hepatitis C: No Hx MRSA: No Surgical History: appendectomy, Hysterectomy, other - Vaccination History Hx Tetanus, Diphtheria Vaccination: No Hx Influenza Vaccination: No Hx Pneumococcal Vaccination: No - Social History Hx Tobacco Use: Yes Hx Chewing Tobacco Use: No Hx Alcohol Use: No Hx Substance Use: No Hx Substance Use Treatment: No Hx Depression: Yes Hx Physical Abuse: No Hx Emotional Abuse: No Hx Suspected Abuse: No - Female History Patient : No Family Medical History - Family History Mother Family History: Unknown Hx Family Hypertension: Yes Hx Family Cancer: Yes - breast-mother and sister Physical Exam - Physical Exam General Appearance: Alert, Comfortable, No apparent distress Cardiovascular/Respiratory: no respiratory distress Knee: non-tender, normal ROM Ankle: pain, soft tissue tenderness, swelling Foot: normal inspection, non-tender, no evidence of injury Neuro/Tendon: normal sensation, normal motor functions, normal tendon functions , responds to pain, no evidence tendon injury Mental Status: alert, oriented x 3 Skin: normal color, warm/dry Progress - Progress Progress: 05/13/18 02:37 Limping but able to bear weight - EKG/XRAY/CT XRAY: ankle - no fx Departure - Departure Clinical Impression: Sprain of left ankle or foot Time of Disposition: 02:38 Disposition: Discharge to Home or Self Care Condition: Fair Departure Forms: ED Discharge - Pt. Copy, Patient Portal Self Enrollment Instructions: Ankle Sprain (DC) Activity: walking as tolerated Referrals: Jakob Landin MD [Primary Care Provider] - 1-2 Weeks Home Medications: Ambulatory Orders Desvenlafaxine Succinate [Pristiq] 50 mg PO BEDTIME 10/03/16 Gabapentin 600 mg PO BEDTIME 10/03/16 Omeprazole 40 mg PO BEDTIME 10/03/16 Atenolol 100 mg PO 05/01/17 Famotidine 20 mg PO BID #15 tab 05/01/17 Ondansetron [Zofran Odt] 4 mg PO Q4H PRN #10 tab 05/01/17 Pravastatin Sodium 40 mg PO 05/01/17 Cyclobenzaprine HCl [Flexeril] 10 mg PO TID PRN #15 tab 10/21/17 Indomethacin 50 mg PO TID PRN #14 cap 10/21/17
[2018-05-13 02:58] VITALS: BP 134/72; TEMP 98.1
== END 2018-05-13 02:58 | disposition home or self-care (01) ==
LOC: ER 01:25
DX: S93.402A Sprain of unspecified ligament of left ankle, initial encounter (principal); R56.9 Unspecified convulsions; I10 Essential (primary) hypertension; K21.9 Gastro-esophageal reflux disease without esophagitis; F32.9 Major depressive disorder, single episode, unspecified; Z87.891 Personal history of nicotine dependence; Z79.899 Other long term (current) drug therapy; X50.1XXA Overexertion from prolonged static or awkward postures, initial encounter; Y93.01 Activity, walking, marching and hiking; Y92.89 Other specified places as the place of occurrence of the external cause

== ENCOUNTER 2018-12-08 15:18 | Emergency (ER) | payer MEDICARE, MEDICAID ==
[2018-12-08 15:51] VITALS: TEMP 98.5
[2018-12-08] MEDS ORDERED: POTASSIUM CHLORIDE ELIXIR 20 MEQ/15 ML UD PO ONE (16:25)
--- NOTE | 2018-12-08 17:16 | ED.PDOC ---
History of Present Illness - General Chief Complaint: Neuro Symptoms/Deficits Stated Complaint: circumoral numbness, mental haze Time Seen by Provider: 12/08/18 15:22 Source: patient Exam Limitations: no limitations - History of Present Illness Initial Comments: the patient is a 33-year-old female presenting to the emergency room secondary to 3-4 days of mild symptoms. The patient has had some intermittent tingling in her extremities and some intermittent tingling around her mouth. She has felt a little bit fuzzy and disoriented but not truly confused. No focal neurological changes. No recent trauma. No fever. No recent medication changes. Timing/Duration: unsure Severity: moderate Improving Factors: nothing Worsening Factors: nothing Allergies/Adverse Reactions: Allergies Cephalexin Allergy (Verified 12/08/18 15:45) Morphine Allergy (Verified 12/08/18 15:45) Home Medications: Ambulatory Orders Omeprazole 40 mg PO BEDTIME 10/03/16 Atenolol 100 mg PO DAILY 05/01/17 Pravastatin Sodium 40 mg PO DAILY 05/01/17 Losartan Potassium 50 mg PO DAILY 12/08/18 Potassium Chloride [Potassium Chloride ER] 20 meq PO DAILY #30 tab 12/08/18 Potassium Chloride [Potassium Chloride ER] 20 meq PO DAILY #30 tab 12/08/18 Review of Systems - Review of Systems Constitutional: States: malaise EENTM: States: no symptoms reported Respiratory: States: no symptoms reported Cardiology: States: no symptoms reported Gastrointestinal/Abdominal: States: no symptoms reported Genitourinary: States: no symptoms reported Musculoskeletal: States: no symptoms reported Skin: States: no symptoms reported Neurological: States: see HPI, paresthesia, tingling Endocrine: States: no symptoms reported All other Systems: No Change from Baseline Past Medical History (General) - Patient Medical History Hx Seizures: Yes Hx Stroke: No Hx Dementia: No Hx Asthma: No Hx of COPD: No Hx Cardiac Disorders: No Hx Congestive Heart Failure: No Hx Pacemaker: No Hx Hypertension: Yes Hx Thyroid Disease: No Hx Diabetes: No Hx Gastroesophageal Reflux: Yes Hx Renal Disease: No Hx Cancer: No Hx of HIV: No Hx Hepatitis C: No Hx MRSA: No Surgical History: Hysterectomy - Vaccination History Hx Tetanus, Diphtheria Vaccination: No Hx Influenza Vaccination: No Hx Pneumococcal Vaccination: No - Social History Hx Tobacco Use: Yes Hx Chewing Tobacco Use: No Hx Alcohol Use: No Hx Substance Use: No Hx Substance Use Treatment: No Hx Depression: Yes Hx Physical Abuse: No Hx Emotional Abuse: No Hx Suspected Abuse: No - Female History Patient : No Family Medical History - Family History Mother Family History: Unknown Hx Family Hypertension: Yes Hx Family Cancer: Yes - breast-mother and sister Physical Exam - Physical Exam General Appearance: Alert, Comfortable - she has somewhat anxious, No apparent distress Eye Exam: bilateral normal Ears, Nose, Throat: hearing grossly normal, normal ENT inspection, normal pharynx Neck: full range of motion, supple Respiratory: lungs clear, normal breath sounds, no respiratory distress, no accessory muscle use Cardiovascular/Chest: normal peripheral pulses, regular rate, rhythm, no edema Peripheral Pulses: radial,right: 2+, radial,left: 2+, dorsalis pedis,right: 2+, dorsalis pedis,left: 2+ Gastrointestinal/Abdominal: non tender, soft Rectal Exam: deferred Back Exam: no CVA tenderness, no vertebral tenderness Extremity: normal range of motion, non-tender, normal inspection, no pedal edema 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 She was dosed with a large dose of potassium here and will be written for potassium to take once daily for the next month. She needs to have a repeat potassium level checked in 1-2 weeks. She needs to follow-up with her primary care doctor as well. ER warnings were given. Telemetry monitoring showed no evidence of any significant arrhythmia. Laboratory work is reassuring. - Results/Orders Results/Orders: Laboratory Tests 12/08/18 12/08/18 12/08/18 16:08 16:08 16:08 WBC 9.7 RBC 5.03 Hgb 14.1 Hct 41.6 MCV 82.7 MCH 28.0 MCHC 33.8 RDW 14.3 Plt Count 275 MPV 9.2 Absolute Neuts (auto) 5.80 Absolute Lymphs (auto) 3.10 Absolute Monos (auto) 0.50 Absolute Eos (auto) 0.20 Absolute Basos (auto) 0.10 Neutrophils % 60.4 Lymphocytes % 32.1 Monocytes % 4.9 Eosinophils % 1.7 Basophils % 0.9 Sodium 139 Potassium 3.2 L Chloride 101 Carbon Dioxide 28 Anion Gap 13.2 BUN 10 Creatinine 0.94 BUN/Creatinine Ratio 10.6 Random Glucose 114 H Serum Osmolality 277.4 Calcium 9.3 Magnesium 2.2 Total Bilirubin 0.2 AST 21 ALT 22 Alkaline Phosphatase 73 Creatine Kinase 97 CK-MB (CK-2) 1.0 CK-MB (CK-2) % Not Reportable Troponin I < 0.02 B-Natriuretic Peptide 34.9 Serum Total Protein 7.4 Albumin 3.9 Globulin 3.5 Albumin/Globulin Ratio 1.1 TSH 2.38 Urine Color Urine Appearance Urine pH Ur Specific [place] Urine Protein Urine Glucose (UA) Urine Ketones Urine Blood Urine Nitrite Urine Bilirubin Urine Urobilinogen Ur Leukocyte Esterase Urine RBC Urine WBC Ur Epithelial Cells Urine Bacteria Urine HCG, Qual Negative 12/08/18 16:08 WBC RBC Hgb Hct MCV MCH MCHC RDW Plt Count MPV Absolute Neuts (auto) Absolute Lymphs (auto) Absolute Monos (auto) Absolute Eos (auto) Absolute Basos (auto) Neutrophils % Lymphocytes % Monocytes % Eosinophils % Basophils % Sodium Potassium Chloride Carbon Dioxide Anion Gap BUN Creatinine BUN/Creatinine Ratio Random Glucose Serum Osmolality Calcium Magnesium Total Bilirubin AST ALT Alkaline Phosphatase Creatine Kinase CK-MB (CK-2) CK-MB (CK-2) % Troponin I B-Natriuretic Peptide Serum Total Protein Albumin Globulin Albumin/Globulin Ratio TSH Urine Color Yellow Urine Appearance Clear Urine pH 6.0 Ur Specific [place] 1.015 Urine Protein Negative Urine Glucose (UA) Negative Urine Ketones Negative Urine Blood Negative Urine Nitrite Negative Urine Bilirubin Negative Urine Urobilinogen 0.2 Ur Leukocyte Esterase Negative Urine RBC 0 Urine WBC 0 Ur Epithelial Cells 3-5 Urine Bacteria Rare Urine HCG, Qual flu is negative Departure - Departure Clinical Impression: Hypokalemia Disposition: Discharge to Home or Self Care Condition: Fair Departure Forms: ED Discharge - Pt. Copy, Patient Portal Self Enrollment Instructions: Hypokalemia (DC) Diet: regular diet Activity: increase activity as tolerated Referrals: Jakob Landin MD [Primary Care Provider] - 1-2 Weeks Prescriptions: Potassium Chloride [Potassium Chloride ER] 20 meq PO DAILY #30 tab Potassium Chloride [Potassium Chloride ER] 20 meq PO DAILY #30 tab Home Medications: Ambulatory Orders Omeprazole 40 mg PO BEDTIME 10/03/16 Atenolol 100 mg PO DAILY 05/01/17 Pravastatin Sodium 40 mg PO DAILY 05/01/17 Losartan Potassium 50 mg PO DAILY 12/08/18 Potassium Chloride [Potassium Chloride ER] 20 meq PO DAILY #30 tab 12/08/18 Potassium Chloride [Potassium Chloride ER] 20 meq PO DAILY #30 tab 12/08/18 Additional Instructions: the patient is a 33-year-old female presenting with a constellation of symptoms that is likely associated with her hypokalemia. She was dosed with a large dose of potassium here and will be written for potassium to take once daily for the next month. She needs to have a repeat potassium level checked in 1-2 weeks. She needs to follow-up with her primary care doctor as well. ER warnings were given. Telemetry monitoring showed no evidence of any significant arrhythmia. Laboratory work is reassuring.
[2018-12-08 17:49] VITALS: BP 141/77; O2SAT 96
== END 2018-12-08 17:30 | disposition home or self-care (01) ==
LOC: ER 15:18
DX: E87.6 Hypokalemia (principal); R20.2 Paresthesia of skin; F32.9 Major depressive disorder, single episode, unspecified; I10 Essential (primary) hypertension; R56.9 Unspecified convulsions; K21.9 Gastro-esophageal reflux disease without esophagitis; Z88.5 Allergy status to narcotic agent; Z88.1 Allergy status to other antibiotic agents; Z79.899 Other long term (current) drug therapy; Z87.891 Personal history of nicotine dependence

== ENCOUNTER → 2018-12-10 | Outpatient (CLI) | payer MEDICARE, MEDICAID | LOC: LAB.O 15:14 | PROVIDERS: ATTEND Nurse Practitioner Family | DX: M54.16 Radiculopathy, lumbar region (principal); E87.6 Hypokalemia ==

== ENCOUNTER → 2019-02-27 | Outpatient (CLI) | payer MEDICARE, MEDICAID ==
--- NOTE | 2019-02-28 09:43 | MRI ---
EXAM DESCRIPTION: Lumbar Spine w/wo Contrast: Magnetic Resonance Imaging. CLINICAL HISTORY: BACK PAIN COMPARISON: MRI scan of the lumbar spine without contrast 04/26/2018. TECHNIQUE: Multiplanar, MRI, multiple standard sequences, without and with standard dose Gadolinium IV contrast, lumbar spine. No adverse reactions. FINDINGS: L5-S1: Disc desiccation with hyperintense T2 annular fissure in the left posterior disc margin. Disc bulges 4 mm. Partial left L5 laminectomy. Enhancement in the surgical site, left L5-S1 facet joint space and posterior to the bilateral facet joints in the soft tissues. Moderate to severe canal narrowing to the left of midline. Minimal narrowing of the left subarticular recess with the disc abutting the descending left S1 nerve. Severe left foraminal narrowing with mild right foraminal narrowing. L4-L5: Disc space preserved with normal signal in the disc. Minimal facet arthrosis and hypertrophy with flavum ligament on the right. Tiny posterior disc bulge with mild canal narrowing. Bilateral foramina are patent. Normal enhancement. L3-L4: Normal signal in the disc with disc space preserved. Posterior elements unremarkable. Canal and foramina are patent. Normal enhancement. L2-L3: Normal signal in the disc with disc space preserved. Posterior elements unremarkable. Canal and foramina are patent. No abnormal enhancement. L1-L2: Disc space preserved normal signal in the disc. Posterior elements are unremarkable. Canal and foramina are patent. Normal contrast enhancement. T12-L1: Disc space preserved with normal signal in the disc. Posterior elements are unremarkable. Canal and foramina are patent. Normal enhancement. Conus terminates at this level. Normal enhancement of the included cord and conus. No scoliosis. Vertebral bodies are not compressed at any level. Normal marrow signal in the vertebral bodies and the posterior elements. Normal osseous Contrast enhancement. Paravertebral soft tissues showing no other abnormalities.Perivertebral contrast enhancement unremarkable except as described above. IMPRESSION: 1. Previous partial left posterior discectomy L5-S1 and partial left laminectomy. Granulation tissue enhancing in the canal and surgical site. Enhancement posterior to the bilateral facet joints with enhancement in the left facet joint which could indicate inflammatory process. No soft tissue mass or fluid collection. Borderline left canal stenosis. Severe left foraminal narrowing and mild right foraminal narrowing. Surgical changes are new since the prior study which was prior to surgery. 2. Minimal right facet arthrosis and hypertrophy with the flavum ligament at L4-5 with tiny posterior disc bulge and right paracentral canal narrowing. No significant foraminal narrowing. Stable since the prior study. Unremarkable findings at other levels with normal enhancement. Electronically signed by: Duran Duffy MD 02/28/2019 9:40 AM CDT
== END ==
LOC: MRI 11:00
PROVIDERS: ATTEND Pain Medicine Interventional Pain Medicine
DX: M51.86 Other intervertebral disc disorders, lumbar region (principal); Z98.890 Other specified postprocedural states

== ENCOUNTER 2019-03-21 20:05 | Emergency (ER) | payer MEDICARE, MEDICAID ==
[2019-03-21] MEDS ORDERED: ASPIRIN TABLET 325 MG TAB PO ONE (20:30)
[2019-03-21] MEDS ORDERED: SODIUM CHLORIDE 0.9% (FLUSH) 10 ML SYG IV PRN (20:30)
[2019-03-21] MEDS ORDERED: ONDANSETRON INJ 4 MG/2 ML VIAL IV ONE (20:30)
--- NOTE | 2019-03-21 20:30 | ED.PDOC ---
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 Timing/Duration: 7-24 hours Severity: moderate Location: other - left side Activities at Onset: activity Prior Chest Pain/Cardiac Workup: no prior chest pain, no prior cardiac workup Improving Factors: nothing Aspirin Treatment Today: 81 mg x 4 Associated Symptoms: shortness of breath, other - see hpi Allergies/Adverse Reactions: Allergies Cephalexin Allergy (Verified 12/08/18 15:45) Morphine Allergy (Verified 12/08/18 15:45) Home Medications: Ambulatory Orders Omeprazole 40 mg PO BEDTIME 10/03/16 Atenolol 100 mg PO DAILY 05/01/17 Pravastatin Sodium 40 mg PO DAILY 05/01/17 Losartan Potassium 50 mg PO DAILY 12/08/18 Potassium Chloride [Potassium Chloride ER] 20 meq PO DAILY #30 tab 12/08/18 Potassium Chloride [Potassium Chloride ER] 20 meq PO DAILY #30 tab 12/08/18 Review of Systems - Review of Systems Constitutional: States: no symptoms reported EENTM: States: no symptoms reported Respiratory: States: no symptoms reported Cardiology: States: see HPI Gastrointestinal/Abdominal: States: no symptoms reported Genitourinary: States: no symptoms reported Musculoskeletal: States: back pain Skin: States: no symptoms reported Neurological: States: no symptoms reported Endocrine: States: no symptoms reported All other Systems: Reviewed and Negative, No Change from Baseline Past Medical History (General) - Patient Medical History Hx Seizures: Yes Hx Stroke: No Hx Dementia: No Hx Asthma: No Hx of COPD: No Hx Cardiac Disorders: No Hx Congestive Heart Failure: No Hx Pacemaker: No Hx Hypertension: Yes Hx Thyroid Disease: No Hx Diabetes: No Hx Gastroesophageal Reflux: Yes Hx Renal Disease: No Hx Cancer: No Hx of HIV: No Hx Hepatitis C: No Hx MRSA: No Surgical History: other - lumbar spine - Vaccination History Hx Tetanus, Diphtheria Vaccination: No Hx Influenza Vaccination: No Hx Pneumococcal Vaccination: No - Social History Hx Tobacco Use: Yes Hx Chewing Tobacco Use: No Hx Alcohol Use: No Hx Substance Use: No Hx Substance Use Treatment: No Hx Depression: Yes Hx Physical Abuse: No Hx Emotional Abuse: No Hx Suspected Abuse: No - Female History Patient : No Family Medical History - Family History Mother Family History: Unknown Hx Family Hypertension: Yes Hx Family Cancer: Yes - breast-mother and sister Physical Exam - Physical Exam General Appearance: Alert, Comfortable, No apparent distress Eyes, Ears, Nose, Throat Exam: normal ENT inspection Neck: non-tender, supple, normal inspection Respiratory: chest non-tender, lungs clear, normal breath sounds Cardiovascular/Chest: normal peripheral pulses, regular rate, rhythm, no murmur Peripheral Pulses: radial,right: 2+, radial,left: 2+ Gastrointestinal/Abdominal: non tender Extremity: no pedal edema, no calf tenderness Neurologic: alert, oriented x 3 Skin Exam: normal color Progress - Progress Progress: 03/21/19 21:49 Vital Signs - 8 hr 03/21/19 03/21/19 20:15 20:43 Temperature 97.8 F Pulse Rate [ 58 L left] Respiratory 20 18 Rate Blood Pressure 152/88 [left] O2 Sat by Pulse 99 Oximetry - Results/Orders Results/Orders: 03/21/19 20:30 IV Care:Saline Lock per Protoc QSHIFT Telemetry .ONCE Sodium Chloride 0.9% (Flush) [Saline Flush Syringe] 10 ml IV PRN PRN EKG Stat Pulse Ox Stat 03/21/19 20:31 URINE DRUG SCREEN, 7 ASSAY Stat Pulse Oximetry Assessment DAILY 03/21/19 20:47 B-TYPE NATRIURETIC PEPTIDE/BNP Stat CARDIAC PANEL,ER Stat HEPATIC FUNCTION PANEL Stat Laboratory Results - last 24 hr 03/21/19 03/21/19 03/21/19 20:47 20:47 22:16 WBC 9.0 RBC 4.96 Hgb 13.7 Hct 40.3 MCV 81.3 MCH 27.7 MCHC 34.0 RDW 14.4 Plt Count 228 MPV 10.1 Absolute Neuts (auto) 5.30 Absolute Lymphs (auto) 3.00 Absolute Monos (auto) 0.40 Absolute Eos (auto) 0.10 Absolute Basos (auto) 0.10 Neutrophils % 58.8 Lymphocytes % 33.5 Monocytes % 4.9 Eosinophils % 1.6 Basophils % 1.2 PT 10.5 INR 1.05 PTT (SP) 25.5 D-Dimer, Quantitative 0.24 Sodium 138 Potassium 3.5 L Chloride 104 Carbon Dioxide 26 Anion Gap 11.5 L BUN 10 Creatinine 0.81 BUN/Creatinine Ratio 12.3 Random Glucose 95 Serum Osmolality 274.5 L Calcium 9.3 Magnesium 1.9 Total Bilirubin 0.3 Direct Bilirubin < 0.1 Indirect Bilirubin 0.2 AST 14 ALT 14 Alkaline Phosphatase 63 Creatine Kinase 74 CK-MB (CK-2) 1.0 CK-MB (CK-2) % Not Reportable Troponin I < 0.02 < 0.02 Serum Total Protein 7.1 Albumin 4.0 Discuss all test result with patient recommended hospital OBS stated she is fine wants to go home - EKG/XRAY/CT EKG: Tello, Sinus Comments: HR-58 XRAY: chest - no acute cardiopulmonary abnormalities - Additional EKG/XRAY/Consults EKG #2: Sinus, no ST T wave changes Comments: HR-53 Departure - Departure Clinical Impression: Chest pain Qualifiers: Chest pain type: unspecified Qualified Code(s): R07.9 - Chest pain, unspecified Time of Disposition: 23:01 Disposition: Discharge to Home or Self Care Condition: Fair Departure Forms: ED Discharge - Pt. Copy, Patient Portal Self Enrollment Instructions: DI for Chest Pain, Drugs to Help You Stop Using Tobacco, Smoking: Not Just Harmful to Your Lungs and Heart Referrals: SCOTT MONZON IV, [employer] [Primary Care Provider] - 1-2 Weeks Home Medications: Ambulatory Orders Omeprazole 40 mg PO BEDTIME 10/03/16 Atenolol 100 mg PO DAILY 05/01/17 Pravastatin Sodium 40 mg PO DAILY 05/01/17 Losartan Potassium 50 mg PO DAILY 12/08/18 Potassium Chloride [Potassium Chloride ER] 20 meq PO DAILY #30 tab 12/08/18 Potassium Chloride [Potassium Chloride ER] 20 meq PO DAILY #30 tab 12/08/18 Additional Instructions: Return to Emergency room as needed;Continue with all home medications;Follow up with primary 25 Mar 2019 for recheck;Continue with all home medications
[2019-03-21] MEDS ORDERED: SODIUM CHLORIDE 0.9% 1000ML 1,000 ML IVS ONE (20:31)
[2019-03-21] MEDS: NITROGLYCERIN 0.4 MG 25 EA TAB SL ONE ×2 (20:49→21:16)
--- NOTE | 2019-03-21 21:16 | RAD ---
EXAM DESCRIPTION: XR Chest,1 View CLINICAL HISTORY: 34 years Female pain TECHNIQUE: One frontal view of the chest. COMPARISON: Comparison is made to the prior examination dated 06/29/2018. FINDINGS: The lungs are clear without focal consolidation, effusion, or pneumothorax. The cardiomediastinal silhouette and central pulmonary vasculature are normal. There are no osseous abnormalities. IMPRESSION: No acute cardiopulmonary abnormalities. Electronically signed by: Lisa Shin MD 03/21/2019 9:14 PM CDT
[2019-03-21 23:15] VITALS: BP 118/73; TEMP 98.2; O2SAT 98
== END 2019-03-21 23:08 | disposition home or self-care (01) ==
LOC: ER 20:05
DX: R07.9 Chest pain, unspecified (principal); R06.02 Shortness of breath; R00.1 Bradycardia, unspecified; I10 Essential (primary) hypertension; K21.9 Gastro-esophageal reflux disease without esophagitis; F32.9 Major depressive disorder, single episode, unspecified; Z79.899 Other long term (current) drug therapy; Z88.5 Allergy status to narcotic agent; Z88.1 Allergy status to other antibiotic agents; Z87.891 Personal history of nicotine dependence
CPT/HCPCS: 36415; 71045; 80048; 80076; 82550; 82553; 83880; 84484; 85025; 85379; 85610; 85730; 93005; J7030

== ENCOUNTER → 2019-06-03 | Outpatient (CLI) | payer MEDICARE, MEDICAID | LOC: LAB.O 16:37 | PROVIDERS: ATTEND Nurse Practitioner Family | DX: R00.2 Palpitations (principal) ==

== ENCOUNTER → 2019-06-05 | Outpatient (CLI) | payer MEDICAID, MEDICARE | LOC: ECHO 10:07 | PROVIDERS: ATTEND Nurse Practitioner Family | DX: R00.2 Palpitations (principal); R01.2 Other cardiac sounds ==

== ENCOUNTER 2019-09-21 21:40 | Emergency (ER) | payer MEDICARE ==
[2019-09-21 22:02] VITALS: TEMP 97.2
--- NOTE | 2019-09-21 22:07 | ED.PDOC ---
History of Present Illness - General Chief Complaint: Problem Stated Complaint: pain when urinating Time Seen by Provider: 09/21/19 22:01 Source: patient - History of Present Illness Initial Comments: 34 yo female with PMH of HTN, GERD who presents with cc of suprapubic pain. Onset 2 days ago after sexual intercourse with her the night before. Reports gradual worsening since onset, reports burning pains to suprapubic region without radiation when she urinates and with palpation, none at rest, no meds tried for relief. Reports also new onset small volume foul-smelling yellow vaginal discharge x2 days and itching/burning sensation to vaginal region. Reports similar sx's when she had trichomonas 5 years ago but has also had UTIs and yeast infections as well. Hx of hysterectomy (2008) and appendectomy in the past. Also reports watery diarrhea x2 days. Denies n/v, chest pain, cough, dyspnea. Allergies/Adverse Reactions: Allergies Cephalexin Allergy (Verified 12/08/18 15:45) Morphine Allergy (Verified 12/08/18 15:45) Home Medications: Ambulatory Orders RX: Omeprazole 40 mg PO BEDTIME 10/03/16 RX: Atenolol 100 mg PO DAILY 05/01/17 RX: Pravastatin Sodium 40 mg PO DAILY 05/01/17 Potassium Chloride [Potassium Chloride ER] 20 meq PO DAILY #30 tab 12/08/18 Potassium Chloride [Potassium Chloride ER] 20 meq PO DAILY #30 tab 12/08/18 RX: Losartan Potassium 50 mg PO DAILY 12/08/18 Review of Systems - Review of Systems Review of Systems: 09/21/19 22:35 as per HPI All other Systems: Reviewed and Negative Past Medical History (General) - Patient Medical History Hx Seizures: Yes - CHILDHOOD Hx Stroke: No Hx Dementia: No Hx Asthma: No Hx of COPD: No Hx Cardiac Disorders: Yes - PVC Hx Congestive Heart Failure: No Hx Pacemaker: No Hx Hypertension: Yes Hx Thyroid Disease: No Hx Diabetes: No Hx Gastroesophageal Reflux: Yes Hx Renal Disease: No Hx Cancer: No Hx of HIV: No Hx Hepatitis C: No Hx MRSA: No Surgical History: appendectomy, Hysterectomy - Vaccination History Hx Tetanus, Diphtheria Vaccination: Yes Hx Influenza Vaccination: No Hx Pneumococcal Vaccination: No Immunizations Up to Date: Yes - Social History Hx Tobacco Use: Yes Hx Chewing Tobacco Use: No Hx Alcohol Use: No Hx Substance Use: No Hx Substance Use Treatment: No Hx Depression: Yes - taking meds at current time Feels Threatened In Home Enviroment: No Feels Threatened In a Relationship: No Hx Physical Abuse: No Hx Emotional Abuse: No Hx Suspected Abuse: No - Activities of Daily Living Hospice Agency (if applicable):: None - Female History Patient is a Female of Child Bearing Age (10 -59 yrs old): No Patient : No Family Medical History - Family History Mother Family History: Unknown Hx Family Hypertension: Yes Hx Family Cancer: Yes - breast-mother and sister Physical Exam - Physical Exam General Appearance: Alert, No apparent distress Eyes, Ears, Nose, Throat Exam: PERRL/EOMI, normal ENT inspection, pharynx normal Neck: non-tender, full range of motion, supple, normal inspection Cardiovascular/Respiratory: regular rate, rhythm, no M/R/G, normal peripheral pulses, normal breath sounds, no respiratory distress Gastrointestinal/Abdominal: normal bowel sounds, soft, tenderness - moderate to suprapubic region Back Exam: normal inspection, no CVA tenderness, no vertebral tenderness Extremity: normal range of motion, non-tender, normal inspection, no pedal edema Neurologic: no motor/sensory deficits, alert, normal mood/affect, oriented x 3 Skin Exam: normal color, warm/dry Progress - Progress Progress: 09/21/19 22:36 Suprapubic pain -along with dysuria, frequency, vaginal burning/discharge -consider UTI vs STI/trich vs vaginal candidiasis vs bacterial vaginosis vs other -obtain UA, pt to decide on pelvic exam once UA results back 09/22/19 00:01 CDT -UA fairly unremarkable, doubt UTI -Pelvic exam done and revealed moderate vaginal erythema and scant white vaginal discharge - wetprep unremarkable, GC/Chlamydia swabs sent but doubtful of either given appearance and also that pt is s/p hysterectomy. Suspect trichomoniasis vs vulvovaginal candidiasis vs both. Discussed findings and possible dx's with patient. She agrees for empiric trx of both here in ED - given Flagyl 2 g PO x1 and Fluconazole 150 mg PO x1. -dc home in good condition, f/u with PCP as scheduled later this week Renato Milan MD Billing #[id number] - Results/Orders Results/Orders: 09/21/19 23:40 GC CHLAMYDIA RNA,TMA Stat Laboratory Results - last 24 hr 09/21/19 09/21/19 22:00 22:00 Urine Color Yellow Urine Appearance Clear Urine pH 6.0 Ur Specific Carrier 1.025 Urine Protein Negative Urine Glucose (UA) Negative Urine Ketones Trace Urine Blood Negative Urine Nitrite Negative Urine Bilirubin Negative Urine Urobilinogen 0.2 Ur Leukocyte Esterase Negative Urine RBC 0-1 Urine WBC 0-1 Ur Epithelial Cells 3-5 Urine Bacteria 0 Urine HCG, Qual Negative Departure - Departure Clinical Impression: Vulvovaginal candidiasis Time of Disposition: 00:02 Disposition: Discharge to Home or Self Care Condition: Good Departure Forms: ED Discharge - Pt. Copy, Patient Portal Self Enrollment Instructions: Yeast Infection (DC) Referrals: SCOTT MONZON IV, [employer] ENGINEER [Primary Care Provider] - 1-2 Weeks Home Medications: Ambulatory Orders RX: Omeprazole 40 mg PO BEDTIME 10/03/16 RX: Atenolol 100 mg PO DAILY 05/01/17 RX: Pravastatin Sodium 40 mg PO DAILY 05/01/17 Potassium Chloride [Potassium Chloride ER] 20 meq PO DAILY #30 tab 12/08/18 Potassium Chloride [Potassium Chloride ER] 20 meq PO DAILY #30 tab 12/08/18 RX: Losartan Potassium 50 mg PO DAILY 12/08/18
[2019-09-22] MEDS ORDERED: metroNIDAZOLE 500 MG TAB PO ONE (00:17)
[2019-09-22] MEDS ORDERED: FLUCONAZOLE 150 MG TAB PO ONE (00:17)
[2019-09-22] MEDS ORDERED: FLUCONAZOLE 100 MG TAB ONE (00:22)
[2019-09-22 00:53] VITALS: BP 120/76; O2SAT 97
== END 2019-09-22 00:50 | disposition home or self-care (01) ==
LOC: ER 21:40
DX: B37.3 Candidiasis of vulva and vagina (principal); R30.0 Dysuria; F32.9 Major depressive disorder, single episode, unspecified; I10 Essential (primary) hypertension; K21.9 Gastro-esophageal reflux disease without esophagitis; Z79.899 Other long term (current) drug therapy; Z87.891 Personal history of nicotine dependence; Z90.710 Acquired absence of both cervix and uterus; Z88.1 Allergy status to other antibiotic agents; Z88.5 Allergy status to narcotic agent; Z87.42 Personal history of other diseases of the female genital tract

== ENCOUNTER → 2020-03-18 | Outpatient (CLI) | payer MEDICARE ==
--- NOTE | 2020-03-19 08:36 | MRI ---
EXAM DESCRIPTION: Pelvis w/o Contrast Magnetic Resonance Imaging. CLINICAL HISTORY: SACROILIAC JOINT DYSFUNCTION COMPARISON: Radiographs of the SI joints and bilateral hips on January 20. TECHNIQUE: Multiplanar MRI, multiple sequences, without gadolinium IV contrast. FINDINGS: Desiccated L5-S1 disc with minimal loss of the disc space and left paracentral bulge with hyperintense T2 annular fissure. Borderline mild left paracentral canal stenosis. Bilateral foraminal narrowing. Normal signal in the L4-L5 disc in the L3-L4 disc. No effusion in the bilateral SI joints. Normal marrow signal in the bilateral SI joint facets. No fracture or diastases. Normal marrow signal in the sacrum and coccyx. Minimal posterior offset of the distal coccygeal segment no soft tissue or marrow edema. IMPRESSION: Left paracentral posterior annular fissure in the L5-S1 disc which is also desiccated and bulging. Borderline mild left paracentral canal stenosis. Annular fissures in discs are a source of low back pain. Normal marrow signal in the sacrum and coccyx. Minimal offset of the distal coccygeal segment. No SI joint effusion. No SI joint facet edema or significant degenerative change. Electronically signed by: Duran Duffy MD 03/19/2020 8:35 AM CDT
== END ==
LOC: MRI 09:42
PROVIDERS: ATTEND Nurse Practitioner Adult Health
DX: M53.3 Sacrococcygeal disorders, not elsewhere classified (principal); M51.37 Other intervertebral disc degeneration, lumbosacral region; M51.9 Unspecified thoracic, thoracolumbar and lumbosacral intervertebral disc disorder; M48.07 Spinal stenosis, lumbosacral region

== ENCOUNTER → 2020-05-08 | Outpatient (CLI) | payer MEDICARE ==
--- NOTE | 2020-05-08 11:51 | MRI ---
EXAM DESCRIPTION: Thoracic Spine w/o Contrast CLINICAL HISTORY: 35 years Female, DORSALGIA COMPARISON: None. TECHNIQUE: MRI of the thoracic spine was performed without intravenous contrast administration. FINDINGS: The vertebral body heights are well-maintained with no acute compression deformity. Intervertebral disc spaces are well preserved. No evidence of disc herniation. No significant central canal stenosis or neural foraminal narrowing. No evidence of spondylolysis or spinal listhesis. The visualized thoracic spinal cord demonstrates no intrinsic signal abnormality. The imaged prevertebral and paravertebral soft tissues appear normal. IMPRESSION: No gross abnormality of the thoracic spine. Electronically signed by: Georgia Buckley MD 05/08/2020 11:50 AM CDT
== END ==
LOC: MRI 10:51
PROVIDERS: ATTEND Anesthesiology
DX: M54.9 Dorsalgia, unspecified (principal); Z01.812 Encounter for preprocedural laboratory examination

== ENCOUNTER → 2020-08-19 | Outpatient (CLI) | payer MEDICARE | LOC: YCFC.O 15:43 | PROVIDERS: ATTEND Family Medicine | DX: I10 Essential (primary) hypertension (principal); E78.5 Hyperlipidemia, unspecified; R53.83 Other fatigue ==

== ENCOUNTER 2020-09-02 20:34 | Emergency (ER) | payer MEDICARE ==
[2020-09-02 20:52] VITALS: TEMP 97.8
--- NOTE | 2020-09-02 21:08 | ED.PDOC ---
History of Present Illness - General Chief Complaint: ENT Problem Stated Complaint: sore throat and right ear pain Time Seen by Provider: 09/02/20 21:05 Source: patient, RN notes reviewed, Vital Signs reviewed Exam Limitations: no limitations - History of Present Illness Initial Comments: Patient is a 35-year-old female who presents with complaints of a sore throat and right earache x1 week. Patient has been taking antibiotics for the last 3 to 4 days without improvement. The pain is sharp and stabbing in nature. It radiates from her throat into her right ear and bahai. Timing/Duration: 1 week, getting worse Severity: moderate Improving Factors: nothing Worsening Factors: nothing Associated Symptoms: fever/chills, headaches Allergies/Adverse Reactions: Allergies Cephalexin Allergy (Verified 12/08/18 15:45) Morphine Allergy (Verified 12/08/18 15:45) Home Medications: Ambulatory Orders Omeprazole 40 mg PO BEDTIME 10/03/16 Atenolol 100 mg PO DAILY 05/01/17 Losartan Potassium 50 mg PO DAILY 12/08/18 Celecoxib [Celebrex] 50 mg PO DAILY 09/02/20 Lidocaine 2% Gel [Xylocaine 2% GEL] 10 ml PO ACHS #120 tube 09/02/20 Losartan Potassium 50 mg PO DAILY 09/02/20 Methylprednisolone [Medrol Dose Simone] 4 mg PO DAILY 6 Days #21 tab 09/02/20 Pregabalin [Lyrica] 25 mg PO DAILY 09/02/20 tiZANidine [Zanaflex] 4 mg PO DAILY 09/02/20 Review of Systems - Review of Systems Constitutional: States: see HPI, chills, fever EENTM: States: see HPI, ear pain, throat pain. Denies: eye pain, blurred vision, double vision, mouth pain, mouth swelling Respiratory: States: no symptoms reported. Denies: cough, short of breath Cardiology: States: no symptoms reported. Denies: chest pain, palpitations, syncope Gastrointestinal/Abdominal: States: no symptoms reported. Denies: abdominal pain, nausea, vomiting Genitourinary: States: no symptoms reported. Denies: dysuria, frequency Musculoskeletal: States: no symptoms reported. Denies: back pain, joint pain, neck pain Skin: Denies: no symptoms reported, change in color, rash Endocrine: States: no symptoms reported. Denies: increased hunger, increased thirst, increased urine Hematologic/Lymphatic: States: no symptoms reported. Denies: blood clots, easy bleeding All other Systems: Reviewed and Negative Past Medical History (General) - Patient Medical History Hx Seizures: No Hx Stroke: No Hx Dementia: No Hx Asthma: No Hx of COPD: No Hx Cardiac Disorders: No Hx Congestive Heart Failure: No Hx Pacemaker: No Hx Hypertension: Yes Hx Thyroid Disease: No Hx Diabetes: No Hx Gastroesophageal Reflux: No Hx Renal Disease: No Hx Cancer: No Hx of HIV: No Hx Hepatitis C: No Hx MRSA: Yes - Abdomen from surgery MRSA Source:: Wound Surgical History: Hysterectomy - Vaccination History Hx Tetanus, Diphtheria Vaccination: Yes Hx Influenza Vaccination: No Hx Pneumococcal Vaccination: No Immunizations Up to Date: No - Social History Hx Tobacco Use: Yes - Pack a day Hx Chewing Tobacco Use: No Hx Alcohol Use: No Hx Substance Use: No Hx Substance Use Treatment: No Hx Depression: No Feels Threatened In Home Enviroment: No Feels Threatened In a Relationship: No Hx Physical Abuse: No Hx Emotional Abuse: No Hx Suspected Abuse: No - Female History Patient is a Female of Child Bearing Age (10 -59 yrs old): Yes Patient : No - Triage Comment ED Triage Comment: The patient was alert and oriented times 4 and complained of sore throat and right ear pain. Family Medical History - Family History Mother Family History: Unknown Hx Family Hypertension: Yes Hx Family Cancer: Yes - breast-mother and sister Physical Exam - Physical Exam General Appearance: Alert, Anxious, Obvious distress, Well Developed, Well Groomed, Well Hydrated, Well Nourished Eye Exam: bilateral normal Ears, Nose, Throat: hearing grossly normal, nasal congestion, pharyngeal erythema, tonsillar swelling, other - right ear with reddened TM and mild pain with tragal traction Neck: full range of motion, supple, lymphadenopathy (R), lymphadenopathy (L) Respiratory: chest non-tender, lungs clear, normal breath sounds, no respiratory distress Cardiovascular/Chest: normal peripheral pulses, regular rate, rhythm, no edema, no gallop, no murmur Peripheral Pulses: radial,right: 2+, radial,left: 2+ Gastrointestinal/Abdominal: normal bowel sounds, non tender, soft Back Exam: normal inspection, no CVA tenderness, no vertebral tenderness Extremity: normal range of motion, non-tender, normal inspection 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 Progress - Results/Orders Results/Orders: 09/02/20 21:00 STREP A SCREEN CULTURE Stat 09/02/20 21:07 Flu A+B (PCR) [INFLUENZA A & B BY PCR] Stat Laboratory Results - last 24 hr 09/02/20 21:00 Group A Strep Rapid Negative Vital Signs 09/02/20 20:40 Temperature 97.8 F Pulse Rate [ 79 Pulse Ox] Respiratory 16 Rate Blood Pressure 152/66 [Left Arm] O2 Sat by Pulse 100 Oximetry Departure - Departure Clinical Impression: Viral pharyngitis Eustachian tube dysfunction Qualifiers: Laterality: right Qualified Code(s): H69.81 - Other specified disorders of Eustachian tube, right ear Time of Disposition: 21:35 Disposition: Discharge to Home or Self Care Condition: Good Departure Forms: ED Discharge - Pt. Copy, Patient Portal Self Enrollment Instructions: DI for Ear Pain-Adult, Viral Pharyngitis (DC), Eustachian Tube Problems (DC) Referrals: SCOTT MONZON IV, [employer] [Primary Care Provider] - 1-5 Days Prescriptions: Methylprednisolone [Medrol Dose Simone] 4 mg PO DAILY 6 Days #21 tab Lidocaine 2% Gel [Xylocaine 2% GEL] 10 ml PO ACHS #120 tube Home Medications: Ambulatory Orders Omeprazole 40 mg PO BEDTIME 10/03/16 Atenolol 100 mg PO DAILY 05/01/17 Losartan Potassium 50 mg PO DAILY 12/08/18 Celecoxib [Celebrex] 50 mg PO DAILY 09/02/20 Lidocaine 2% Gel [Xylocaine 2% GEL] 10 ml PO ACHS #120 tube 09/02/20 Losartan Potassium 50 mg PO DAILY 09/02/20 Methylprednisolone [Medrol Dose Simone] 4 mg PO DAILY 6 Days #21 tab 09/02/20 Pregabalin [Lyrica] 25 mg PO DAILY 09/02/20 tiZANidine [Zanaflex] 4 mg PO DAILY 09/02/20
[2020-09-02] MEDS ORDERED: ALUM & MAG HYDROX-SIMETHICONE 30 ML, LIDOCAINE VISCOUS 2% 15 ML PO ONE ×2 (21:20)
[2020-09-02] MEDS ORDERED: DEXAMETHASONE INJ 10 MG/ML VIAL IM ONE (21:20)
[2020-09-02 21:44] VITALS: BP 117/61; O2SAT 96
== END 2020-09-02 21:44 | disposition home or self-care (01) ==
LOC: ER 20:34
DX: J02.9 Acute pharyngitis, unspecified (principal); H69.81 Other specified disorders of Eustachian tube, right ear; I10 Essential (primary) hypertension; Z87.891 Personal history of nicotine dependence; Z79.899 Other long term (current) drug therapy; Z88.1 Allergy status to other antibiotic agents; Z88.5 Allergy status to narcotic agent
CPT/HCPCS: 87070; 87880; J1100

== ENCOUNTER → 2020-09-14 | Outpatient (CLI) | payer MEDICARE | LOC: YCFC.O 14:40 | PROVIDERS: ATTEND Nurse Practitioner | DX: Z20.828 Contact with and (suspected) exposure to other viral communicable diseases (principal); J02.9 Acute pharyngitis, unspecified ==

== ENCOUNTER → 2020-10-28 | Outpatient (CLI) | payer MEDICARE ==
--- NOTE | 2020-10-29 15:35 | MRI ---
EXAM: Lumbar Spine w/wo Contrast INDICATION: SPONDYLOSIS, LUMBAR, W/RADICULOPATHY. Patient reports pain. A stimulator device was placed in May 2020. COMPARISON: MR L-spine with and without contrast 02/27/2019, MR thoracic spine without contrast 05/08/2020, MR pelvis without contrast 03/18/2020 TECHNIQUE: Multiplanar multisequence MRI of the lumbar spine was performed without and with 20 mL Dotarem IV contrast. FINDINGS: For the purposes of this examination, the last fully formed disc space is designated as L5-S1, reference axial T2 series 501 image 3 and axial T1 series 601 image 6. Note is made that there is severe motion and artifact degradation of the axial T2 sequence, which is essentially nondiagnostic. Alignment is stable from prior MR lumbar spine examination of 02/27/2019 without anterolisthesis or retrolisthesis. Vertebral body height is well maintained. Since the prior MR thoracic spine examination of 05/08/2020, there has been interval placement of spinal stimulator leads and a battery pack in the posterior body wall soft tissues. Although susceptibility artifact from the leads and battery pack limits the evaluation, the leads appear to enter the spinal column at the T12-L1 level. No associated abnormal enhancement or fluid collection is identified. Evaluation of the conus medullaris and cauda equina is limited due to severe artifact degradation of the axial T2 sequence. No definite abnormal nerve root enhancement is identified on the axial T1 postcontrast sequence. T12-L1: No spinal canal or neural foraminal stenosis. L1-2: No spinal canal or neural foraminal stenosis. L2-3: No spinal canal or neural foraminal stenosis. L3-4: No spinal canal or neural foraminal stenosis. L4-5: Facet arthropathy and ligamentum flavum thickening. No spinal canal stenosis. Minimal neural foraminal narrowing. L5-S1: Degenerative disc disease with disc space height loss and desiccation, similar to the prior examination. Stable tiny posterior disc annular fissure. Postoperative changes of left hemilaminectomy are again noted, with interval improvement of previously identified soft tissue enhancement at the surgical site and left facet. However, since the prior study, bone marrow edema and enhancement has developed in the right L5 pedicle and articular process (reference sagittal STIR series 401 image 13 and sagittal postcontrast series 701 image 13), as well as in the right sacrum at the level of S1 (axial T1 fat-saturated postcontrast series 801 images 3-5). There is associated ill-defined mild periarticular edema and enhancement. No significant central spinal canal stenosis at this level. Moderate left and mild right neural foraminal stenosis. No apparent prevertebral soft tissue edema. No drainable fluid collection is identified. IMPRESSION: 1. Since the prior MR lumbar spine examination of 02/27/2019, periarticular mild soft tissue edema and enhancement has increased at the right L5-S1 facet. There is associated underlying bone marrow edema and vague marrow enhancement at the right L5 pedicle, right L5 inferior articular process, and in the right sacrum at the level of S1. These findings could represent active inflammatory facet arthropathy. However, given marrow enhancement, infection/osteomyelitis is not excluded if there is any clinical concern for infection. 2. Enhancement and edema previously seen at the left L5-S1 facet has improved. 3. Degenerative disc disease at L5-S1 with posterior annular fissure is similar to the prior examination. No significant central spinal canal stenosis at this level. Moderate left and mild right neural foraminal stenosis is grossly stable. 4. Interval placement of a spinal stimulator is noted at the T12-L1 level. 5. Additional findings as described above. Electronically signed by: Mag Hammonds MD 10/29/2020 3:34 PM [facility]
== END ==
LOC: MRI 11:02
PROVIDERS: ATTEND Neurological Surgery
DX: Z01.818 Encounter for other preprocedural examination (principal); M47.26 Other spondylosis with radiculopathy, lumbar region; M51.17 Intervertebral disc disorders with radiculopathy, lumbosacral region; M48.061 Spinal stenosis, lumbar region without neurogenic claudication; R60.0 Localized edema; Z96.82 Presence of neurostimulator